=== PATIENT | male | born 1985 | race Two or more races ===

== ENCOUNTER 2023-03-17 17:12 | Emergency (ER) | payer MEDICAID, OTHER ==
[~2023-03-17] VITALS: Ht 172.7 cm; Wt 73.0 kg
[2023-03-17] MEDS ORDERED: NEOMYCIN-BACITRACIN-POLYM UNITDOSE PKG TOP OINT TOP ONE (17:45)
[2023-03-17] MEDS ORDERED: IBUPROFEN 800 MG TAB PO ONE (17:45)
[2023-03-17] MEDS ORDERED: TETANUS-DIPTH-ACEL PERTUSSIS 0.5ML SYR Tdap IM ONE (17:45)
[2023-03-17] MEDS ORDERED: IBUP800T26 PO (19:16)
[2023-03-17] MEDS ORDERED: MAX35OO TOP (19:16)
[2023-03-17 19:50] VITALS: BP 125/78
== END 2023-03-17 19:52 | disposition home or self-care (01) ==
LOC: ER 17:12 → EDBD 17:12 → ER 19:17
DX: S00.531A Contusion of lip, initial encounter (principal); S80.12XA Contusion of left lower leg, initial encounter; Y04.2XXA Assault by strike against or bumped into by another person, initial encounter; Y93.89 Activity, other specified; Y92.89 Other specified places as the place of occurrence of the external cause; Y99.8 Other external cause status
CPT/HCPCS: 73590; 90471; 90715